=== PATIENT | female | born 1975 | race Hispanic/Latino ===

== ENCOUNTER 2021-08-18 14:56 | Outpatient (CLI) | payer BC ==
[2021-08-19 21:08] LABS: SARS-CoV-2 PCR by NAA Not Detected (NotDetected)
== END 2021-08-18 14:57 | disposition home or self-care (01) ==
LOC: CSHLAB 14:56
PROVIDERS: ATTEND Otolaryngology Plastic Surgery within the Head & Neck
DX: Z01.812 Encounter for preprocedural laboratory examination (principal); Z20.822 Contact with and (suspected) exposure to COVID-19; E04.1 Nontoxic single thyroid nodule
CPT/HCPCS: 85014; U0003; U0005

== ENCOUNTER 2021-08-23 09:42 | Observation (INO) | payer BC ==
[2021-08-17 13:58] VITALS: BMI 31.6
[2021-08-23] MEDS ORDERED: Lidocaine 1% MPF 2 ML VIAL ONE (10:46)
[2021-08-23] MEDS ORDERED: Acetaminophen 325 MG TAB PO PRN (11:35)
[2021-08-23] MEDS ORDERED: Ondansetron PF 4 MG/2 ML Vial ONE (11:37)
[2021-08-23] MEDS ORDERED: Midazolam HCl 2 mg/2 ml Vial ONE (11:37)
[2021-08-23] MEDS ORDERED: Fentanyl 250 MCG/5 ML VIAL ONE (11:37)
[2021-08-23] MEDS ORDERED: Lidocaine 1% PF 5 ML VIAL ONE (11:37)
[2021-08-23] MEDS ORDERED: Rocuronium Bromide 10 MG/ML (10ML VIAL) ONE (11:37)
[2021-08-23] MEDS ORDERED: PROPOFOL 20 ML ONE (11:37)
[2021-08-23] MEDS ORDERED: Dexamethasone 20 MG/5 ML VIAL ONE (11:37)
[2021-08-23] MEDS ORDERED: Lidocaine 1% w/Epinephrine 1:100K 30 ML VIAL ONE (11:39)
[2021-08-23] MEDS ORDERED: CEFAZOLIN 1 GM VIAL ONE (11:48)
[2021-08-23 11:59] LABS: Thyroid Stimulating Hormone 3.5851 uIU/mL (0.35-4.94)
[2021-08-23] MEDS ORDERED: Meperidine HCl/PF 25 MG/ML VIAL ONE (13:38)
[2021-08-23] MEDS: Calcium Carbonate 600 MG TAB PO SCH ×2 (15:53→22:40)
[2021-08-23] MEDS: HYDROcodone/Acetaminophen 5/325 mg Tablet PO PRN ×2 (15:53→20:55)
[2021-08-23] MEDS: Calcitriol 0.25 MCG CAP PO SCH (20:55)
[2021-08-23] MEDS: Ondansetron PF 4 MG/2 ML Vial IVP PRN (23:33)
[2021-08-24] MEDS: HYDROcodone/Acetaminophen 5/325 mg Tablet PO PRN (02:22)
[2021-08-24] MEDS ORDERED: Dexamethasone 20 MG/5 ML VIAL SLOW IVP SCH (05:00)
[2021-08-24] MEDS: Ondansetron PF 4 MG/2 ML Vial IVP PRN (08:06)
[2021-08-24] MEDS: Calcitriol 0.25 MCG CAP PO SCH (08:07)
[2021-08-24] MEDS: Calcium Carbonate 600 MG TAB PO SCH (08:07)
[2021-08-24 12:09] VITALS: BP 131/80; TEMP 98
[2021-08-24] MEDS ORDERED: Atorvastatin Calcium 40 MG TAB PO SCH (21:00)
[2021-08-26 15:01] LABS: EliA Thy New Method **** NEW METHOD ****
== END 2021-08-24 12:37 | disposition home or self-care (01) ==
LOC: CSHSDC 09:42 → INTOOBSV 11:54 → CSHTELE 11:54
PROVIDERS: ADMIT Otolaryngology Plastic Surgery within the Head & Neck; ATTEND Otolaryngology Plastic Surgery within the Head & Neck
PROC: 0GTK0ZZ Resection of Thyroid Gland, Open Approach (ICD-10-PCS; principal; 2021-08-23)
PROC: 07T20ZZ Resection of Left Neck Lymphatic, Open Approach (ICD-10-PCS; 2021-08-23)
PROC: 07T10ZZ Resection of Right Neck Lymphatic, Open Approach (ICD-10-PCS; 2021-08-23)
PROC: 0GSR0ZZ Reposition Parathyroid Gland, Open Approach (ICD-10-PCS; 2021-08-23)
DX: C73 Malignant neoplasm of thyroid gland (principal); C77.0 Secondary and unspecified malignant neoplasm of lymph nodes of head, face and neck; Z79.899 Other long term (current) drug therapy; Z88.2 Allergy status to sulfonamides
CPT/HCPCS: 36415; 82310; 83970; 84436; 84443; 84479; 86800; 88305; 88307; 88331; 88334; 94760; J0690; J1100; J2175; J2250; J2405; J2704; J3010